=== PATIENT | female | born 1940 | race Caucasian/White ===

== ENCOUNTER 2021-07-25 07:09 | Inpatient (IN) ==
--- NOTE | 2021-06-26 14:34 | PAT Medication Instructions ---
Medication Instructions Date of Service June 26, 2021 Home Medications amiodarone 200 mg tablet 200 mg PO QAM aspirin 81 mg tablet,delayed release 81 mg PO DAILY atorvastatin 40 mg tablet 40 mg PO QPM cyanocobalamin (vitamin B-12) 1,000 mcg tablet (Vitamin B-12) 1,000 mcg PO DAILY dicyclomine 10 mg capsule 10 mg PO QID PRN donepezil 10 mg tablet 10 mg PO DAILY dulaglutide 1.5 mg/0.5 mL subcutaneous pen injector (Trulicity) 1.5 mg SUBCUT WK lisinopril 10 mg tablet 10 mg PO QAM melatonin 10 mg capsule 10 mg PO HS metoprolol succinate 25 mg tablet,extended release 24 hr 25 mg PO QAM multivitamin 1 cap PO DAILY sertraline 25 mg tablet 25 mg PO QPM Continue as directed donepezil 10 mg tablet 10 mg PO DAILY dulaglutide 1.5 mg/0.5 mL subcutaneous pen injector (Trulicity) 1.5 mg SUBCUT WK (not day of surgery) ASK your prescriber and surgeon aspirin 81 mg tablet,delayed release 81 mg PO DAILY DO NOT take the morning of surgery cyanocobalamin (vitamin B-12) 1,000 mcg tablet (Vitamin B-12) 1,000 mcg PO DAILY dicyclomine 10 mg capsule 10 mg PO QID PRN lisinopril 10 mg tablet 10 mg PO QAM multivitamin 1 cap PO DAILY Take morning of surgery With a small sip of water, OTHERWISE NOTHING TO EAT OR DRINK AFTER MIDNIGHT: amiodarone 200 mg tablet 200 mg PO QAM metoprolol succinate 25 mg tablet,extended release 24 hr 25 mg PO QAM Take evening before surgery atorvastatin 40 mg tablet 40 mg PO QPM dicyclomine 10 mg capsule 10 mg PO QID PRN(if needed) melatonin 10 mg capsule 10 mg PO HS sertraline 25 mg tablet 25 mg PO QPM Other Notes If you have any questions please call us at [phone] or [phone] or [phone] or [phone]
--- NOTE | 2021-07-03 09:21 | Anesthesiology Consultation ---
Date of Service July 03, 2021 Assessment & Plan (1) Encounter for pre-operative examination: - check BSG am DOS. - awaiting cardiology clearance notation and booking sheet changed to overnight. - cardiac history: Case discussed with Dr. Billy Marin including pre-op EKG and he advised that cardiology clearance notation is needed and patient is NOT acceptable for same day surgery. Alivia at surgeon's office made aware. - MCI: to accompany patient am DOS. - PCP 05/14/21 [facility]: "...Right rotator cuff repair scheduled for June - no pre op needed per ...Decrease dose of Trulicity due to weight loss...With Nephrology and Cardiology. Blood pressure is at goal. Genetic testing for HOCM was negative...Hallucinations could be related to zoloft - discontinue this. Insomnia could be related to aricept; start trazodone and f/u with neuro in 2 weeks and then PCP office will call in 4 weeks..." - cardio 04/08/21 [facility]: "...AF newly found 11/22/2020 ended up getting DCCV in the ED; upon hospital discharged started on amiodarone and toprol; no AC was started [id number] (age, HTN, DM, Female)...Asymmetric left ventricular hypertrophy..maximal LV thickness at end diastole is 1.6 cm...inducible dynamic left ventricular outflow tract obstruction...inducible peak instantaneous left ventricular outflow tract gradient is 74 mm Hg.however the LV cavity is underfilled leading to high gradients...No new major cardiac issues in interval since last seen...NSTEMI s/p 11/22/2020 Cath revealed no disease...HCM genetic testing is still pending...did not want to have cMRI because of claustrophobia...no recurrent paroxysmal atrial fibrillation noted on December 2020 Zio monitor...continue on the remainder of her cardiac medications we will see her back in 6 months..." - COVID screening: Per assessment on 07/03/2021: Travel screen negative, no known COVID-19 positive contacts or current COVID-19 related symptoms in past 2 weeks. Pt vaccinated. Surgeon arranging preop COVID testing, scheduled 07/23/2021. Awaiting results. Chart Review Chart Review: Pending: Refer to Additional Notes / Consult section and Patient seen in Pre Admission Testing Teaching & Discussion Pre-Anesthesia Teaching/Discussion Notes: Instructed NPO after midnight before surgery, except medications with 15 cc of water. Medication instructions provided according to the PAT guidelines. History Surgery Operation Date: 07/25/21 09:10 Proposed Procedures p Right Shoulder Arthroscopic Rotator Cuff Repair, Subacromial Decopression, Debridement, Possible Bicep Tenodesis - Luis Daniel Porter M.D. Height/Weight Height: 5 ft 1 in Weight: 56 kg Allergies Allergy/AdvReac Type Severity Reaction Status Date / Time PAIN MEDICATION Allergy Unknown "STRONG Uncoded 06/25/21 13:14 PAIN MEDICATION" - HALLUCINATIONS Medications Home Medications Medication Instructions Recorded Confirmed Last Taken amiodarone 200 mg tablet 200 mg PO QAM 03/01/21 06/25/21 03/13/21 aspirin 81 mg tablet,delayed 81 mg PO DAILY 03/01/21 06/25/21 03/12/21 release atorvastatin 40 mg tablet 40 mg PO QPM 03/01/21 06/25/21 03/12/21 cyanocobalamin (vitamin B-12) 1,000 mcg PO DAILY 03/01/21 06/25/21 03/12/21 1,000 mcg tablet (Vitamin B-12) dicyclomine 10 mg capsule 10 mg PO QID PRN 03/01/21 06/25/21 Unknown donepezil 10 mg tablet 10 mg PO DAILY 03/01/21 06/25/21 03/12/21 dulaglutide 1.5 mg/0.5 mL 1.5 mg SUBCUT WK 03/01/21 06/25/21 03/11/21 subcutaneous pen injector (Trulicity) lisinopril 10 mg tablet 10 mg PO QAM 03/01/21 06/25/21 03/13/21 melatonin 10 mg capsule 10 mg PO HS 03/01/21 06/25/21 Unknown metoprolol succinate 25 mg 25 mg PO QAM 03/01/21 06/25/21 03/12/21 tablet,extended release 24 hr multivitamin 1 cap PO DAILY 03/01/21 06/25/21 03/13/21 Past Medical History Medical History (Updated 07/03/21 @ 16:00 by Bella Jeffers PA-C) Anxiety and depression Atrial fibrillation with RVR 11/2020 s/p cardioversion, no anticoagulation, no paroxysmal afib on 12/2020 Zio monitor per cardio-follows with [facility] cardio Carotid artery stenosis less than 50% stenosis ICAs bilat on 2015 duplex CKD (chronic kidney disease) stage 3, GFR 30-59 ml/min Diabetes NIDDM, type 2, A1c 6.0% 04/2021 Diverticulitis Hepatic steatosis History of colon polyps BENIGN History of CA (myocardial infarction) 11/2020 per records; cath negative; 2020 echo-moderate sized apical wall motion abnormality with akinesis of segments, EF 55-59% HTN (hypertension) controlled, stable per pt Hyperlipidemia LVH (left ventricular hypertrophy) negative HCOM genetic testing per [facility] cardio records MCI (mild cognitive impairment) follows with [facility] neuro, aware of upcoming surgery Renal cyst follows with [facility] nephrology Visual hallucinations sertraline being d/c per PCP and neuro Patient denies h/o stroke, seizures, heart failure, blood clots or blood transfusions. Exercise / Class Metabolic Activity III < 4 Walking/Shop/Light housework (denies CP or SOB) Past Family History Family History Mother Family history of diabetes mellitus Past Surgical History Surgical History History of cardiac cath DEC 2020 - afib with RVR, CA-angiographically normal coronary arteries-no stents History of cataract surgery LEFT History of colonoscopy History of hysterectomy History of knee surgery Past Anesthesia History No Hx of Anesthesia Complications and No Family Hx of Anesthesia Complications History of PONV No Hx of PONV and No Hx of Motion Sickness Social History Smoking Status: Former smoker tobacco type: cigarettes and e-cigarettes Do You Dip or Chew Tobacco: No Smoking End Date: quit cigs 6 yrs ago- quit e cigs 2 yrs go Hx Alcohol Use: Yes alcohol intake frequency: holidays/special occasions only Hx Substance Use: No substance use type: does not use Review of Systems Infrequent snoring, denies witnessed apneas or sleep studies. Occasional cough, chronic, denies change or worsening. Patient denies chest pain, shortness of breath, dyspnea on exertion, reflux, fever, chills, wheezing, or palpitations. Physical Exam Vital Signs Vitals BP 153/77 (Pt states did medication today, is often anxious in hospitals) P 62 TEMP 98.5 SP02 98% on RA RESP 17 Physical Full cervical extension range of motion without pain TMD 3.5 finger breaths Mallampati Score 3 Dentition: edentulous, full upper and lower dentures Lungs: normal respiratory effort. Clear throughout to auscultation, no adventitious breath sounds Cardiac: regular rate and rhythm, no murmurs noted Carotid arteries: negative bruit bilat Lab Results Anesthesia Preop Results Results Anesthesia Widget: WBC 4.53 K/uL (4.8-10.8) L 07/03/21 Hgb 12.8 g/dL (12.0-16.0) 07/03/21 Hct 37.9 % (37-47) 07/03/21 Plt 244 K/uL (130-400) 07/03/21 Na 140 mmol/L (136-145) 07/03/21 K 4.0 mmol/L (3.5-5.1) 07/03/21 Cl 104 mmol/L (98-107) 07/03/21 CO2 29 mmol/L (21-32) 07/03/21 BUN 12 mg/dl (6-23) 07/03/21 Creat 1.08 mg/dl (0.6-1.2) 07/03/21 Glucose Level 78 mg/dl (70-99(Fasting)) 07/03/21 PT 10.9 Seconds (9.0-12.0) 07/03/21 PTT 29.5 Seconds (21.0-31.0) 07/03/21 INR 1.0 (0.9-1.1) 07/03/21 Urine Color Yellow 07/03/21 Urine Appearance Clear (Clear) 07/03/21 Urine pH 7.0 (4.5-7.5) 07/03/21 Urine Specific [place] 1.011 (1.000-1.030) 07/03/21 Urine Protein Negative (Negative) 07/03/21 Urine Glucose (UA) Negative (Negative) 07/03/21 Urine Ketones Negative (Negative) 07/03/21 Urine Blood Negative (Negative) 07/03/21 Urine Nitrite Negative (Negative) 07/03/21 Urine Bilirubin Negative (Negative) 07/03/21 Urine Urobilinogen Negative (Negative) 07/03/21 Urine Leukocyte Esterase Trace (Negative) H 07/03/21 Urine WBC (Auto) 1-5 /hpf (0-5) 07/03/21 Urine RBC (Auto) 0-4 /hpf (0-4) 07/03/21 Urine Hyaline Casts (Auto) 0 /lpf (0-5) 07/03/21 Urine Epithelial Cells (Auto) 10-20 /lpf (0-5) H 07/03/21 Urine Bacteria (Auto) Negative (Negative) 07/03/21 Testing Electrocardiogram Date: 07/03/21 Sinus bradycardia, rate 59 bpm Right atrial enlargement ST elevation, consider early repolarization, pericarditis or injury Chest X-Ray Date: 07/03/21 Lung volumes are normal. Lungs are clear. There is no pneumothorax or pleural effusion. Borderline cardiomegaly. There is mitral annular calcification. Mediastinal contours are normal. There is no evidence for pulmonary edema. Left abdominal calcifications are incidentally noted. Opacity along left heart border likely reflects epicardial fat pad. IMPRESSION: No acute cardiopulmonary findings. Echocardiogram Date: 11/23/20 EF 55-59% Moderate sized apical wall motion abnormality with akinesis of the segments Asymmetric LVH maximal at end diastole 1.6 cm Inducible dynamic left ventricular outflow tract obstruction, gradient 74 mmHg [place] is akinetic, left atrium moderately enlarged Grade I diastolic dysfunction Mild tricuspid regurgitation Cardiac Catheterization Date: 11/26/20 Indications: NSTEMI Coronary arteries are angiographically normal Different ostium for Cx and LAD Other Testing Event monitor 01/31/21 Predominant rhythm sinus with average HR 66 bpm; slowest 43 bpm, fastest 164 bpm Rare APC, no SVT, PAT or AF Rare VPC, one 10 beat run of NSVT Carotid doppler 12/13/15 Less than 50% stenosis ICAs bilat
--- NOTE | 2021-07-24 16:40 | History & Physical Report ---
Date of Service July 24, 2021 Assessment & Plan (1) Complete rotator cuff tear or rupture of right shoulder, not specified as traumatic: Plan: She has chronic right shoulder pain and weakness, with exacerbation of her symptoms after a fall in April. MRI shows a full-thickness rotator cuff tear. She also has subacromial impingement and likely superior labral tear contributing to her symptoms. She has failed a course of conservative treatment including injections. I would recommend a right shoulder arthroscopy with rotator cuff repair. We will plan for subacromial decompression and likely biceps tenodesis at the same setting. She is in agreement this plan. Risks, benefits, and alternatives of surgery were explained in detail. The surgical procedure, as well as postoperative recovery and rehabilitation, was also explained in detail. Risks include bleeding; infection; damage to surrounding structures such as nerves, blood vessels, and tendons that run in the area; persistent pain, numbness, weakness, or stiffness; hardware failure or failure of the repair; or need for further surgery. The patient understands all of this and wishes to proceed with surgery. Informed consent was obtained. History of Present Illness Chief Complaint: Right shoulder pain and weakness Primary Care Provider: Lisbet Lee Ms. Quinonez is a 81-year-old female who has had chronic right shoulder pain since around December 2020 without any obvious injury. She initially presented in January 2021 and received a subacromial steroid injection at that time. She noted significant improvement in her shoulder pain after that injection. She then had a fall in April 2021 with significant worsening of her symptoms. She was then sent for an MRI. Allergies Allergy/AdvReac Type Severity Reaction Status Date / Time PAIN MEDICATION Allergy Unknown "STRONG Uncoded 06/25/21 13:14 PAIN MEDICATION" - HALLUCINATIONS Home Medications Medication Instructions Recorded Confirmed Type amiodarone 200 mg tablet 200 mg PO QAM 03/01/21 06/25/21 History aspirin 81 mg tablet,delayed 81 mg PO DAILY 03/01/21 06/25/21 History release atorvastatin 40 mg tablet 40 mg PO QPM 03/01/21 06/25/21 History cyanocobalamin (vitamin B-12) 1,000 mcg PO DAILY 03/01/21 06/25/21 History 1,000 mcg tablet (Vitamin B-12) dicyclomine 10 mg capsule 10 mg PO QID PRN 03/01/21 06/25/21 History donepezil 10 mg tablet 10 mg PO DAILY 03/01/21 06/25/21 History dulaglutide 1.5 mg/0.5 mL 1.5 mg SUBCUT WK 03/01/21 06/25/21 History subcutaneous pen injector (Trulicity) lisinopril 10 mg tablet 10 mg PO QAM 03/01/21 06/25/21 History melatonin 10 mg capsule 10 mg PO HS 03/01/21 06/25/21 History metoprolol succinate 25 mg 25 mg PO QAM 03/01/21 06/25/21 History tablet,extended release 24 hr multivitamin 1 cap PO DAILY 03/01/21 06/25/21 History Past Med/Surg History Medical History (Updated 07/24/21 @ 16:40 by Luis Daniel Porter M.D.) Aneurysm apical, 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 Anxiety and depression Atrial fibrillation with RVR on Eliquis, 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 Carotid artery stenosis less than 50% stenosis ICAs bilat on 2015 duplex CKD (chronic kidney disease) stage 3, GFR 30-59 ml/min Diabetes NIDDM, type 2, A1c 6.0% 04/2021 Diverticulitis Hepatic steatosis History of colon polyps BENIGN History of [place] (myocardial infarction) 11/2020 per records; cath negative; 2020 echo-moderate sized apical wall motion abnormality with akinesis of segments, EF 55-59% HTN (hypertension) controlled, stable per pt Hyperlipidemia Hypertrophic cardiomyopathy with obstruction, 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 MCI (mild cognitive impairment) follows with [facility] neuro, aware of upcoming surgery Renal cyst follows with [facility] nephrology Visual hallucinations sertraline being d/c per PCP and neuro Surgical History History of cardiac cath NOV/DEC 2020 - afib with RVR, [place]-angiographically normal coronary arteries-no stents History of cataract surgery LEFT History of colonoscopy History of hysterectomy History of knee surgery Family History Mother Family history of diabetes mellitus Social History Smoking Status: Former smoker Second Hand Exposure: No; Hx Alcohol Use: Yes Hx Substance Use: No Preferred Language: Vincentian Communication Ability: Effective Police Officer Required: No Beliefs That Will Affect Care: None Current Living Situation: Spouse Feels Safe at Home: Yes Assistive Devices: Denture - Upper, Denture - Lower and Glasses Physical Exam Physical Exam: Examination of the right shoulder reveals limitation and weakness of the supraspinatus and infraspinatus. Subscapularis strength is well maintained. Positive Truxton's test. Positive impingement testing. Results & Data ([facility]) Diagnostic Findings Previous x-rays of the right shoulder from January 2021 were reviewed. They are largely unremarkable. No glenohumeral or acromioclavicular joint arthritis. No obvious proximal migration of the humeral head. MRI of the right shoulder from April 2021 was reviewed. It is a very poor quality MRI with poor resolution of the images. However, does appear to show a full-thickness rotator cuff tear involving the anterior aspect of the supraspinatus. It does not appear that there is significant fatty atrophy of the rotator cuff muscle bellies, but this is difficult to tell due to the quality of the MRI. It does look like there is fairly dramatic lateral downsloping of the acromion. There is signal within the superior labrum consistent with a superior labral tear.
[~2021-07-25 07:09] MED LIST: BUPIVACAINE 0.5 % 5 MG/1 ML MPF 30ML VIAL ONE; LR 15ML/HR IV SCH; ceFAZolin 1000MG 1,000 MG/7.5 ML SYR IV SCH
[2021-07-25] MEDS ORDERED: PROPOFOL IV EMULSION 10 MG/ML 20 ML VIAL IV ONE (07:32)
[2021-07-25] MEDS ORDERED: LIDOCAINE 2% 2 ML VIAL/AMP(20MG/ML) INFIL ONE (07:32)
[2021-07-25] MEDS ORDERED: fentaNYL citrate 100 MCG/2 ML VIAL ONE (07:32)
[2021-07-25] MEDS ORDERED: MIDAZOLAM HCL 1 MG/ML 2ML VIAL ONE (07:32)
[2021-07-25] MEDS ORDERED: NEOSTIGMINE METHYLSULFATE 1 MG/ML 10ML VIAL ONE (07:32)
[2021-07-25] MEDS ORDERED: DEXAMETHASONE SOD INJ 4 MG/ML VIAL ONE (07:32)
[2021-07-25] MEDS ORDERED: ONDANSETRON INJ 2 MG/ML 2 ML VIAL ONE (07:32)
[2021-07-25] MEDS ORDERED: GLYCOPYRROLATE 0.2 MG/ML VIAL ONE (07:32)
--- NOTE | 2021-07-25 09:10 | History & Physical Bridge Note ---
Date of Service July 25, 2021 History & Physical Bridge Note I have examined the patient, reviewed the History & Physical and in the interval since the performance of the History & Physical I have noted the following changes of clinical significance: no changes noted
[2021-07-25] MEDS ORDERED: ATROPINE SULFATE 0.1 MG/ML 10ML SYR IV PRN (10:10)
[2021-07-25] MEDS ORDERED: ONDANSETRON INJ 2 MG/ML 2 ML VIAL IV PRN ×2 (10:10→14:44)
[2021-07-25] MEDS ORDERED: ePHEDrine sulfate 50 MG/ML AMP IV PRN (10:10)
[2021-07-25] MEDS ORDERED: fentaNYL citrate 100 MCG/2 ML VIAL IV PRN (10:10)
[2021-07-25] MEDS ORDERED: PHENYLEPHRINE HCL 10 MG/ML VIAL ONE (10:37)
--- NOTE | 2021-07-25 12:27 | Post Operative Brief Note ---
Immediate Post Op Note v1 Date of Surgery July 25, 2021 Pre & Post Diagnosis Operation Date: 07/25/21 09:30 Pre-Op Diagnosis: Right Shoulder: Rotator Cuff Tear, Impingement Syndrome Post-Op Diagnosis: Right Shoulder: Rotator Cuff Tear, Impingement Syndrome, Acromioclavicular Joint Arthritis I identified the patient and participated in the time-out.: Yes Procedure Operation Date: 07/25/21 09:30 Actual Procedures p Right Shoulder: Arthroscopic Rotator Cuff Repair, Subacromial Decompression, Debridement, Bicep Tenodesis, Distal Clavicle Excision(Right) - Luis Daniel Porter M.D. Surgeon Luis Daniel Porter Insurance Healthcare Consultant Lucio Brand PA-C Estimated Blood Loss 15 Findings Consistent with Post-Op Diagnosis
--- NOTE | 2021-07-25 12:41 | Operative Report ---
Post Operative Report Pre & Post Diagnosis Operation Date: 07/25/21 09:30 Pre-Op Diagnosis: 1. Right shoulder rotator cuff tear 2. Subacromial impingement 3. Possible superior labral tear Post-Op Diagnosis: 1. Right shoulder partial thickness (~90%) rotator cuff tear 2. Subacromial impingement 3. Superior labral tear 4. Acromioclavicular joint arthritis 5. Osteoporosis I identified the patient and participated in the time-out.: Yes Procedure Operation Date: 07/25/21 09:30 Actual Procedures Right shoulder arthroscopy with double-row rotator cuff repair (02409) Arthroscopic subacromial decompression (79692) Arthroscopic distal clavicle excision (73060) Arthroscopic extensive debridement (77278) Arthroscopic biceps tenodesis (88202) - Luis Daniel Porter M.D. Surgeon Luis Daniel Porter Parachute Mender Lucio Brand PA-C Estimated Blood Loss 15 Findings Consistent with Post-Op Diagnosis Specimens None Anesthesia Type General Regional Complications none Disposition Disposition: Recovery Room Indications Ms. Quinonez is a 81-year-old female with chronic right shoulder pain and weakness without known injury, but with recent worsening of her symptoms after a fall in April 2021. History, clinical exam, and imaging were consistent with the above diagnosis. Risks, benefits, and alternatives of surgery were explained in detail. The patient understood all this and wished to proceed. Description of Procedure Patient was identified in the preoperative holding area. Operative extremity was marked. Regional blockade was given by the Anesthesia Staff. Patient was then brought back to the operating room, and general anesthesia was induced without complication. Appropriate weight-based dose of Ancef was infused intravenously for antibiotic prophylaxis. Patient was then placed up in the beach chair position. Right arm was then prepped and draped in a standard sterile fashion using Chlorhexidine prep. Posterior viewing portal was created with a #11 blade. Arthroscopic camera was introduced into the shoulder joint. Anterior working portal was then created with a #11 blade after localizing with a spinal needle. Diagnostic arthroscopy was then performed. Anterior-inferior labrum and inferior labrum were intact. [Articular cartilage in the glenoid and humeral head was largely intact without significant chondromalacia; there was 1 small area of focal grade III chondromalacia in the humeral head, measuring approximately 5 mm in diameter. There were no loose bodies in the axillary pouch. Superior labrum showed fraying along the free edge. When probed, the superior labrum from the superior glenoid, consistent with a type II SLAP tear. I then inspected the biceps tendon as it exited out of the shoulder. There was significant synovi tis and tendonitis of the biceps tendon in this area. I therefore decided to proceed with a biceps tenotomy and tenodesis. I tagged the biceps tendon with a 0 PDS suture. I then amputated the biceps tendon off of the superior labrum, and debrided the biceps tendon stump at the biceps labral anchor back to a smooth and stable rim. The fraying and tearing along the free edge of the labrum was also debrided with an arthroscopic shaver. I then inspected the rotator cuff tendon. Rotator cuff showed fraying and partial-thickness tearing of its inferior articular surface, but not an obvious near full-thickness tear. I debrided the frayed and partially torn tendon fibers of the inferior articular surface of the rotator cuff with an arthroscopic shaver back to intact tendon fibers. I then estimated the inferior articular surface tear to involve only approximately 10% of the tendon thickness. I did not complete the tear at this point, but planned to inspect this area of the rotator cuff from its superior bursal surface later in the procedure. I then removed the camera from the intraarticular space and placed it in the subacromial space. Subacromial bursectomy was then performed with shaver and radiofrequency probe the subacromial bursa was extremely thick, inflamed, and hypertrophic. I defined the anterior and lateral borders of the acromion as well as the acromioclavicular joint. Severe lateral downsloping to the acromion was noted; I first used the bur through the lateral portal to debride the lateral edge of the acromion. I then used the arthroscopic bur through the posterior portal to excise the anterolateral undersurface of the acromion and complete the subacromial decompression in a cutting block technique. I then turned my attention to the distal clavicle. There was significant hypertrophy and osteophyte formation of the distal clavicle and medial border of the acromion that appeared to be impinging on the underlying rotator cuff, and I therefore decided to proceed with an arthroscopic distal clavicle excision. I placed the arthroscopic bola through the anterior portal and removed the distal 8 mm of the clavicle from anterior-inferior to superior-posterior. I ensured that the superior portion of the distal clavicle was completely excised while leaving the superior acromioclavicular joint capsule intact. At this point I proceeded with the biceps tenodesis. I continued with the bursectomy anteriorly to the area overlying the bicipital groove. Bicipital groove was palpated, and the biceps tendon was unroofed with the radiofrequency probe. There was significant synovitis and tendonitis of the biceps tendon in this area. I then subluxated the biceps tendon out of the bicipital groove and placed a guide wire in the center of the bicipital groove. I then used an 8 mm reamer over the guidewire to create the biceps tenodesis hole. I then tensioned the biceps tendon appropriately, placed the tendon down into the depth of the tenodesis hole, and held it there with a guidewire. I then secured the tendon with a 7 x 25 mm Biosure tenodesis screw over the guidewire to complete the biceps tenodesis. I then amputated the proximal portion of the tendon proximal to the tenodesis screw. I then turned my attention to the rotator cuff. I inspected the rotator cuff tendon from its superior bursal surface in the area of inferior articular surface partial-thickness tendon tearing seen earlier in the procedure, and noted high-grade partial thickness tendon tearing in the same area. I estimated the tear thickness at the superior bursal surface to be approximately 80% of the tendon thickness, and therefore estimated the total partial-thickness tendon tearing to be approximately 90%. I therefore determined that completion of the tear and rotator cuff repair would provide the best long-term outcome. I therefore completed the tear by dividing the few remaining intact tendon fibers with a knife. I debrided the anterior and posterior aspects of the tendon tear to get back to good, healthy, intact tendon tissue. I also debrided the supraspinatus footprint on the greater tuberosity to incite a healing response. I then visualized the articular margin. As I inserted the tap for a medial row anchor, I noted that the bone was very soft, and therefore decided to use 5.5 mm anchors. I placed two 5.5 mm Healicoil PK anchors as medial row anchors just off of the articular margin. I then passed sutures from each anchor up through the rotator cuff tendon. After all the sutures were passed, I then abducted the shoulder to allow the rotator cuff tendon to reduce back to its anatomic footprint, then tensioned and tied down each pair of sutures. As I inserted the awl for the lateral row anchor, I again noted that the bone was very soft, and therefore decided to use 5.5 mm anchors. I then took one limb of suture from each suture knot and loaded them through a 5.5 mm Footprint PK anchor as the lateral row anchor. This was placed over the lateral edge of the greater tuberosity distal to the rotator cuff tear. The anchor was impacted into place and then each limb of the suture was individually tensioned with the shoulder abducted to allow the rotator cuff tendon to come back to its insertion point. Unfortunately during suture tensioning, the anchor was noted to back out of its hole, consistent with severe osteoporosis that with minimal craft artist of the anchor on the surrounding soft bone. This anchor was temporarily removed, and the sutures loaded into another anchor. Both anchors were then impacted into the same hole to give a larger mass-effect and therefore better fixation in that hole. A second lateral row anchor was then placed with the other limb of the suture from each anchor. Fortunately this second anchor held more firmly in the bone, and did not require additional fixation. This gave an excellent double- row repair with good compression of the distal end of the rotator cuff tendon back down to its anatomic footprint. The rotator cuff tendon then moved as a unit with the humeral head. The extensive arthroscopic debridement involved 3 or more structures, including: biceps labral anchor, labrum, humeral bone at the greater tuberosity footprint, subacromial bursa, inferior articular surface of the rotator cuff, superior bursal surface of the rotator cuff. All arthroscopic equipment was removed and excess fluid was drained. Arthroscopic portals were then closed with 4-0 Prolene. Sterile dressings were then applied with Xeroform, sterile gauze, and sterile ABD pads, and foam tape. The arm was placed in a sling with abduction pillow. Drapes were removed, the patient was awakened from general anesthesia, transferred over to the stretcher, and taken to the Post Anesthesia Care Unit in stable condition. There were no immediate complications from the procedure. I was present and scrubbed for the entire procedure. Due to the complex nature of the procedure, the entire surgery was performed with the operational assistance of Lucio Brand PA-C. The assistant technician, under direct supervision, was involved in the performance of all aspects of the surgical procedure including hemostasis, tissue incision and retraction, instrument management, patient positioning, and wound closure. I attest to the content of the Intraoperative Record and any orders documented therein. Any exceptions are noted below.
--- NOTE | 2021-07-25 14:39 | Anesthesiology Progress Note ---
Date of Service July 25, 2021 Anesthesia Post Procedure Vital Signs Vital Signs: Temp Pulse Pulse Resp BP Pulse Ox 07/25/21 14:15 36.2 C L 59 L 13 111/95 100 07/25/21 14:00 63 17 145/62 H 98 07/25/21 13:45 55 L 15 170/74 H 97 07/25/21 13:30 54 L 14 158/68 H 96 07/25/21 13:20 60 20 169/69 H 95 07/25/21 13:10 35.9 C L 53 L 12 154/64 H 96 07/25/21 13:00 53 L 16 163/66 H 97 07/25/21 12:50 59 L 14 169/72 H 96 07/25/21 12:40 60 18 161/63 H 96 07/25/21 12:33 36.0 C L 72 16 155/66 H 99 07/25/21 08:21 36.7 C 65 20 144/75 H 99 Pain Intensity Right Shoulder: Pain Intensity: 2 Transfer of Care Handoff Completed per policy Notes Mental Status: alert / awake / arousable Patient Amnestic to Procedure: Yes Nausea / Vomiting: adequately controlled Pain: adequately controlled Airway Patency, RR, SpO2: stable & adequate BP & HR: stable & adequate Hydration State: stable & adequate Anesthetic Complications: no major complications apparent
[2021-07-25] MEDS ORDERED: DICYCLOMINE HCL 10 MG CAP PO PRN (14:44)
[2021-07-25] MEDS ORDERED: NALOXONE HCL 0.4 MG/1 ML VIAL/CARP IV PRN (14:44)
[2021-07-25] MEDS ORDERED: MAGNESIUM HYDROXIDE SUSP 30 ML UDC PO PRN (14:44)
[2021-07-25] MEDS ORDERED: bisacodyL 10 MG SUPP PR PRN (14:44)
[2021-07-25] MEDS ORDERED: METOCLOPRAMIDE HCL INJ 5 MG/ML 2 ML VIAL IV PRN (14:44)
--- NOTE | 2021-07-25 15:22 | Consultation ---
Date of Consultation July 25, 2021 Assessment & Plan (1) Rotator cuff tear: Right shoulder partial thickness Rotator cuff tear, Subacromial impingement, Superior labral tear S/P Right shoulder arthroscopy with double-row rotator cuff repair, arthroscopic subacromial decompression, debridement POD #0 Activity, wound care, DVT prophylaxis as per primary team. Incentive spirometry Bowel regimen to prevent constipation Patient sensitive to narcotics, minimize use as able Reorient frequently to minimize delirium Monitor for postop anemia PT/OT when appropriate DM II Last HbA1C: 6.0 on 05/07/21 Update HbA1C Hold Trulicity Insulin sliding scale while hospitalized Monitor BGs Atrial fibrillation Continue amiodarone, metoprolol Currently not on anticoagulation Continue aspirin Follows with [facility] cardiology Hypertension BP slightly elevated Continue current medication B12 deficiency Continue Supplements Dyslipidemia On Lipitor CKD stage III Monitor renal function Avoid nephrotoxic agents as able Mild cognitive impairment On Aricept Code Status Full Code Disposition As per Primary Team History of Present Illness Requesting Physician: Dr. Luis Daniel Porter Reason for Consultation: Post Op Medical Management Attending Physician: Luis Daniel Porter History of Present Illness Patient is a 81-year-old female with history of diabetes mellitus, atrial fibrillation, former tobacco use, hypertension, B12 deficiency, dyslipidemia, CKD stage III, mild cognitive impairment as per records and other medical problems was consulted for postop medical management. Patient underwent right shoulder surgery for right shoulder partial-thickness rotator cuff tear, subacromial impingement, superior labral tear, acromioclavicular joint arthritis. Patient is doing well postoperatively. She denies any significant pain at surgical site. Also denies any numbness or tingling in fingers. States feeling little shaky with ambulation. Denies any chest pain, shortness breath, dizziness, nausea, abdominal pain. Allergies Allergy/AdvReac Type Severity Reaction Status Date / Time adhesive tape AdvReac Mild red, Verified 07/25/21 11:41 irritated skin PAIN MEDICATION Allergy Unknown "STRONG Uncoded 07/25/21 08:00 PAIN MEDICATION" - HALLUCINATIONS Home Medications Medication Instructions Recorded Confirmed Type amiodarone 200 mg tablet (Pacerone) 200 mg PO QAM 03/01/21 07/25/21 History aspirin 81 mg tablet,delayed 81 mg PO DAILY 03/01/21 07/25/21 History release atorvastatin 40 mg tablet (Lipitor) 40 mg PO QPM 03/01/21 07/25/21 History cyanocobalamin (vitamin B-12) 1,000 mcg PO DAILY 03/01/21 07/25/21 History 1,000 mcg tablet (Vitamin B-12) dicyclomine 10 mg capsule 10 mg PO QID PRN 03/01/21 07/25/21 History donepezil 10 mg tablet (Aricept) 10 mg PO DAILY 03/01/21 07/25/21 History dulaglutide 1.5 mg/0.5 mL 1.5 mg SUBCUT WK 03/01/21 07/25/21 History subcutaneous pen injector (Trulicity) lisinopril 10 mg tablet (Zestril) 10 mg PO QAM 03/01/21 07/25/21 History metoprolol succinate 25 mg 25 mg PO QAM 03/01/21 07/25/21 History tablet,extended release 24 hr (Toprol XL) multivitamin 1 cap PO DAILY 03/01/21 07/25/21 History Patient History Medical History (Updated 07/25/21 @ 16:39 by Santos Biswas MD) Aneurysm apical, 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 Anxiety and depression Atrial fibrillation with RVR on Eliquis, 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 Carotid artery stenosis less than 50% stenosis ICAs bilat on 2015 duplex CKD (chronic kidney disease) stage 3, GFR 30-59 ml/min Diabetes NIDDM, type 2, A1c 6.0% 04/2021 Diverticulitis Hepatic steatosis History of colon polyps BENIGN History of [place] (myocardial infarction) 11/2020 per records; cath negative; 2020 echo-moderate sized apical wall motion abnormality with akinesis of segments, EF 55-59% HTN (hypertension) controlled, stable per pt Hyperlipidemia Hypertrophic cardiomyopathy with obstruction, 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 MCI (mild cognitive impairment) follows with [facility] neuro, aware of upcoming surgery Renal cyst follows with [facility] nephrology Rotator cuff tear Visual hallucinations sertraline being d/c per PCP and neuro Surgical History History of cardiac cath NOV/DEC 2020 - afib with RVR, [place]-angiographically normal coronary arteries-no stents History of cataract surgery LEFT History of colonoscopy History of hysterectomy History of knee surgery Family History Mother Family history of diabetes mellitus Social History Smoking Status: Former smoker Smoking End Date: quit cigs 6 yrs ago- quit e cigs 2 yrs go; Second Hand Exposure: No; Do You Dip or Chew Tobacco: No; Tobacco Cessation Education Requested by Patient: No Hx Alcohol Use: Yes Hx Substance Use: No Preferred Language: Armenian Communication Ability: Effective Game Show Host Required: No Beliefs That Will Affect Care: None Current Living Situation: Spouse Other Information That Helps Us Care for You: No Feels Safe at Home: Yes Safety Concerns: Feels Safe At This Time Assistive Devices: Denture - Upper, Denture - Lower and Glasses Review of Systems Review of Systems: All systems reviewed & are unremarkable except as noted in Subjective Physical Exam Physical Exam: Physical Exam: Vitals signs as noted above General Appearance:Thin, no apparent distress Head: normocephalic, Atraumatic Eyes: normal inspection, EOMI Neck: supple, Trachea midline Respiratory/Chest: Normal breath sounds, CTA, No accessory muscle use Cardiovascular: S1, S2, No murmur Abdomen/GI:Soft, Non tender, Bowel sounds present Extremities/Musculoskeletal:normal inspection, no edema, R shoulder in Sling Neurologic/Psych:AAOX3, grossly no focal neurological deficits Skin: normal color, warm Results & Data ([facility]) Vital Signs (Past 12 Hours) Vital Signs Temp Pulse Pulse Resp BP Pulse Ox 07/25/21 14:35 36.1 C L 60 16 162/53 H 95 07/25/21 14:15 36.2 C L 59 L 13 111/95 100 07/25/21 14:00 63 17 145/62 H 98 07/25/21 13:45 55 L 15 170/74 H 97 07/25/21 13:30 54 L 14 158/68 H 96 07/25/21 13:20 60 20 169/69 H 95 07/25/21 13:10 35.9 C L 53 L 12 154/64 H 96 07/25/21 13:00 53 L 16 163/66 H 97 07/25/21 12:50 59 L 14 169/72 H 96 07/25/21 12:40 60 18 161/63 H 96 07/25/21 12:33 36.0 C L 72 16 155/66 H 99 07/25/21 08:21 36.7 C 65 20 144/75 H 99 Laboratory Results Laboratory Results - last 24 hr 07/25/21 07/25/21 07/25/21 07:44 08:06 12:38 POC Glucose 91 78 SARS-CoV-2, RNA, NAAT NEGATIVE Diagnostic Findings CXR 07/03/21:No acute cardiopulmonary findings.
[2021-07-25] MEDS ORDERED: POLYETHYLENE (MIRALAX) 17 GM PACK PO PRN (15:33)
[2021-07-25] MEDS: SODIUM CHLORIDE 0.9% 1000ML 1,000 ML IV SCH (15:35)
[2021-07-25] MEDS ORDERED: GLUCAGON FOR INJ 1 MG VIAL SQ PRN (15:37)
[2021-07-25] MEDS ORDERED: GLUCOSE 10 TABS/TUBE PO PRN (15:37)
[2021-07-25] MEDS ORDERED: CARBOHYDRATES FOR HYPOGLYCEMIA PO PRN (15:37)
[2021-07-25] MEDS ORDERED: DEXTROSE 50% 50 ML SYRINGE IV PRN (15:37)
[2021-07-25] MEDS ORDERED: GLUCOSE 40% GEL 15 GM TUBE PO PRN (15:37)
[2021-07-25] MEDS: ACETAMINOPHEN 500 MG TAB PO SCH ×2 (16:25→21:31)
[2021-07-25] MEDS: ceFAZolin 1000MG 1,000 MG/7.5 ML SYR IV SCH (17:39)
[2021-07-25] MEDS: INSULIN ASPART PER UNIT SC SCH ×2 (17:39→21:26)
[2021-07-25] MEDS: IBUPROFEN 600 MG TAB PO SCH ×2 (18:25→23:25)
[2021-07-25] MEDS: DOCUSATE SODIUM 100 MG CAP PO SCH (20:41)
[2021-07-25] MEDS ORDERED: ATORVASTATIN 40 MG TAB PO SCH (21:00)
[2021-07-25] MEDS ORDERED: SENNA 8.6 MG TAB PO SCH (21:00)
[2021-07-26] MEDS: SODIUM CHLORIDE 0.9% 1000ML 1,000 ML IV SCH (01:37)
[2021-07-26] MEDS: ceFAZolin 1000MG 1,000 MG/7.5 ML SYR IV SCH (01:37)
[2021-07-26] MEDS: ACETAMINOPHEN 500 MG TAB PO SCH (05:45)
[2021-07-26] MEDS: IBUPROFEN 600 MG TAB PO SCH (05:45)
[2021-07-26 05:49] LABS: Hematocrit (blood only) 34.1 % (37-47); Hemoglobin 11.6 g/dL (12.0-16.0); Mean Corpuscular Hemoglobin 32.8 pg (25-34); Mean Corpuscular Volume 96.3 fL (80-100); Mean Platelet Volume 9.7 fL (7.4-10.4); Platelet Count 215 K/uL (130-400); RDW Coefficient of Variation 12.9 % (11.5-14.5); RDW Standard Deviation 45.3 fL (36.4-46.3); Red Blood Count 3.54 M/uL (4.2-5.4); White Blood Count 6.95 K/uL (4.8-10.8)
[2021-07-26 06:06] LABS: Basophils # (auto) 0.02 K/uL (0-0.2); Basophils % (auto) 0.3 %; Eosinophils # (auto) 0.02 K/uL (0-0.5); Eosinophils % (auto) 0.3 %; Immature Granulocytes # (auto) 0.03 K/uL (0.00-0.02); Immature Granulocytes % (auto) 0.4 %; Lymphocytes # (auto) 1.26 K/uL (1.2-3.4); Lymphocytes % (auto) 18.1 %; Monocytes # (auto) 0.71 K/uL (0.11-0.59); Monocytes % (auto) 10.2 %; Neutrophils # (auto) 4.91 K/uL (1.4-6.5); Neutrophils % (auto) 70.7 %
[2021-07-26 06:07] LABS: BUN Creatinine Ratio 13.8 (10-20); Calcium 8.3 mg/dl (8.5-10.1); Creatinine Clr Calc Pharmacy 31.6 ml/min; Est GFR (African American) 55.9 ml/min; Est GFR (Non-African American) 48.2 ml/min
[2021-07-26 07:43] LABS: Estimated Average Glucose 123 mg/dl; Hemoglobin A1C 5.9 % (4.5-5.6)
--- NOTE | 2021-07-26 07:49 | Orthopedic Progress Note ---
Date of Service July 26, 2021 Assessment & Plan (1) Rotator cuff tear: Plan: 81 yo female stable POD #1 s/p right shoulder arthro, biceps tenodesis, SAD, DCE, RCR 1. Med management 2. DVT prophylaxis- SCDs 3. PT/OT 4. D/C planning- home w/ OPPT Admission and Anticipated Discharge Date Admission Date: July 25, 2021 Subjective Pt resting in chair, denies complaints overnight, pain controlled Physical Exam Physical Exam: Abduction immobilizer in place right UE, fingers mobile, NVI, dressing in place Results & Data ([facility]) Vital Signs (Past 12 Hours) Vital Signs Temp Pulse Resp BP Pulse Ox 07/26/21 06:20 36.5 C 60 16 124/63 94 07/26/21 01:32 36.3 C L 62 16 152/67 H 94 07/25/21 22:36 36.7 C 63 17 128/71 93 07/25/21 20:24 36.7 C 60 17 130/65 94 Laboratory Results 07/26/21 07/26/21 07/26/21 Range/Units 05:20 05:20 05:20 WBC 6.95 (4.8-10.8) K/uL RBC 3.54 L (4.2-5.4) M/uL Hgb 11.6 L (12.0-16.0) g/dL Hct 34.1 L (37-47) % MCV 96.3 (80-100) fL MCH 32.8 (25-34) pg MCHC 34.0 (32-36) g/dL RDW Std Deviation 45.3 (36.4-46.3) fL RDW Coeff of Hazel 12.9 (11.5-14.5) % Plt Count 215 (130-400) K/uL MPV 9.7 (7.4-10.4) fL Immature Gran % (Auto) 0.4 % Neut % (Auto) 70.7 % Lymph % (Auto) 18.1 % [place] % (Auto) 10.2 % Eos % (Auto) 0.3 % Baso % (Auto) 0.3 % Neut # (Auto) 4.91 (1.4-6.5) K/uL Lymph # (Auto) 1.26 (1.2-3.4) K/uL [place] # (Auto) 0.71 H (0.11-0.59) K/uL Eos # (Auto) 0.02 (0-0.5) K/uL Baso # (Auto) 0.02 (0-0.2) K/uL Immature Gran # (Auto) 0.03 H (0.00-0.02) K/uL Sodium 136 (136-145) mmol/L Potassium 4.0 (3.5-5.1) mmol/L Chloride 106 (98-107) mmol/L Carbon Dioxide 23 (21-32) mmol/L Anion Gap 7 (3-11) BUN 15 (6-23) mg/dl Creatinine 1.09 (0.6-1.2) mg/dl Est Cr Clr Drug Dosing 31.6 ml/min Est GFR ( Amer) 55.9 ml/min Est GFR (Non-Af Amer) 48.2 ml/min BUN/Creatinine Ratio 13.8 (10-20) Glucose 104 H (70-99(Fasting)) mg/dl POC Glucose (70-99) mg/dl Estimat Average Glucose 123 mg/dl Hemoglobin A1c 5.9 H (4.5-5.6) % Calcium 8.3 L (8.5-10.1) mg/dl SARS-CoV-2, RNA, NAAT (NEGATIVE) 07/25/21 07/25/21 07/25/21 Range/Units 20:47 17:23 12:38 WBC (4.8-10.8) K/uL RBC (4.2-5.4) M/uL Hgb (12.0-16.0) g/dL Hct (37-47) % MCV (80-100) fL MCH (25-34) pg MCHC (32-36) g/dL RDW Std Deviation (36.4-46.3) fL RDW Coeff of Hazel (11.5-14.5) % Plt Count (130-400) K/uL MPV (7.4-10.4) fL Immature Gran % (Auto) % Neut % (Auto) % Lymph % (Auto) % [place] % (Auto) % Eos % (Auto) % Baso % (Auto) % Neut # (Auto) (1.4-6.5) K/uL Lymph # (Auto) (1.2-3.4) K/uL [place] # (Auto) (0.11-0.59) K/uL Eos # (Auto) (0-0.5) K/uL Baso # (Auto) (0-0.2) K/uL Immature Gran # (Auto) (0.00-0.02) K/uL Sodium (136-145) mmol/L Potassium (3.5-5.1) mmol/L Chloride (98-107) mmol/L Carbon Dioxide (21-32) mmol/L Anion Gap (3-11) BUN (6-23) mg/dl Creatinine (0.6-1.2) mg/dl Est Cr Clr Drug Dosing ml/min Est GFR ( Amer) ml/min Est GFR (Non-Af Amer) ml/min BUN/Creatinine Ratio (10-20) Glucose (70-99(Fasting)) mg/dl POC Glucose 89 117 H 78 (70-99) mg/dl Estimat Average Glucose mg/dl Hemoglobin A1c (4.5-5.6) % Calcium (8.5-10.1) mg/dl SARS-CoV-2, RNA, NAAT (NEGATIVE) 07/25/21 07/25/21 Range/Units 08:06 07:44 WBC (4.8-10.8) K/uL RBC (4.2-5.4) M/uL Hgb (12.0-16.0) g/dL Hct (37-47) % MCV (80-100) fL MCH (25-34) pg MCHC (32-36) g/dL RDW Std Deviation (36.4-46.3) fL RDW Coeff of Hazel (11.5-14.5) % Plt Count (130-400) K/uL MPV (7.4-10.4) fL Immature Gran % (Auto) % Neut % (Auto) % Lymph % (Auto) % [place] % (Auto) % Eos % (Auto) % Baso % (Auto) % Neut # (Auto) (1.4-6.5) K/uL Lymph # (Auto) (1.2-3.4) K/uL [place] # (Auto) (0.11-0.59) K/uL Eos # (Auto) (0-0.5) K/uL Baso # (Auto) (0-0.2) K/uL Immature Gran # (Auto) (0.00-0.02) K/uL Sodium (136-145) mmol/L Potassium (3.5-5.1) mmol/L Chloride (98-107) mmol/L Carbon Dioxide (21-32) mmol/L Anion Gap (3-11) BUN (6-23) mg/dl Creatinine (0.6-1.2) mg/dl Est Cr Clr Drug Dosing ml/min Est GFR ( Amer) ml/min Est GFR (Non-Af Amer) ml/min BUN/Creatinine Ratio (10-20) Glucose (70-99(Fasting)) mg/dl POC Glucose 91 (70-99) mg/dl Estimat Average Glucose mg/dl Hemoglobin A1c (4.5-5.6) % Calcium (8.5-10.1) mg/dl SARS-CoV-2, RNA, NAAT NEGATIVE (NEGATIVE)
--- NOTE | 2021-07-26 08:07 | Discharge Summary ---
Date of Service July 26, 2021 Admission HPI Per Admitting Provider Ms. Quinonez is a 81-year-old female who has had chronic right shoulder pain since around December 2020 without any obvious injury. She initially presented in January 2021 and received a subacromial steroid injection at that time. She noted significant improvement in her shoulder pain after that injection. She then had a fall in April 2021 with significant worsening of her symptoms. She was then sent for an MRI. Principal Diagnosis Right shoulder rotator cuff tear Discharge Data Allergies Allergy/AdvReac Type Severity Reaction Status Date / Time adhesive tape AdvReac Mild red, Verified 07/25/21 11:41 irritated skin PAIN MEDICATION Allergy Unknown "STRONG Uncoded 07/25/21 08:00 PAIN MEDICATION" - HALLUCINATIONS Consultations 07/25/21 14:44 Consult Hospitalist Routine Procedures Performed Operation Date: 07/25/21 09:30 Actual Procedures p Right Shoulder: Arthroscopic Rotator Cuff Repair, Subacromial Decompression, Debridement, Bicep Tenodesis, Distal Clavicle Excision(Right) - Luis Daniel Porter M.D. Ordered Studies 07/25/21 05:00 US - OR guided needle placemen Routine Hospital Course (1) Complete rotator cuff tear or rupture of right shoulder, not specified as tr aumatic: Patient underwent a right shoulder arthroscopy with rotator cuff repair and biceps tenodesis on the date of admission. Patient tolerated the procedure well and was transferred up to the general orthopedic surgery floor in stable condition. Preadmission testing had recommended overnight observation due to her hypertrophic cardiomyopathy. Postoperatively, internal medicine consultation was requested. She did well overnight, and was stable the morning after surgery. Perioperative pain control regimen was transitioned to strictly oral pain medications by postoperative day 1. On postoperative day 1 the patient was doing very well. Pain was well controlled, and patient was mobilizing well with therapy. Patient was determined be safe and ready for d ischarge to home. Total Time Total Time Spent Total Time Spent (In Minutes): 5 Discharge Plan Discharge Items Patient Disposition: Home - Self-Care Reason For Visit: Rotator Cuff Tear, Impingement Syndrome Discharge Diagnosis: Right shoulder rotator cuff tear, superior labral tear, acromioclavicular joint arthritis, osteoporosis Activity: Per Instructions section Non-emergency contact: Surgeon Call non-emergency contact if: your pain is not controlled, your temperature is above 101.5, your wound has increased redness and your wound has increased drainage Follow-up/Referrals: Luis Daniel Porter M.D. [Physician] - Lisbet Lee PA-C [Primary Care Provider] - Diet: Carb Consistent or DM2 Addtl Attending Provider Instructions: Things to Watch Out For -Nausea and sometimes vomiting is common side effect of anesthesia. Go easy with eating for the first day after your surgery. Drink non-carbonated fluids like Gatorade or water. Eat bland foods such as crackers. If these things go down easily, you may progress to more normal foods. -Go to the Emergency Room if you have sudden onset of chest pain, shortness of breath, or uncontrollable pain. -Call the clinic immediately if you have a sudden increase in the amount of wound drainage or the drainage becomes thick, yellow or green, or foul-smelling. -For routine questions, call the clinic at [phone] during regular business hours (8am-5pm). For urgent issues after regular business hours, you may call the clinic to be connected to the on-call physician. Dressings -Keep your dressings clean, dry, and in place for 4 days. After 4 days, you may remove the dressing and cover the incisions with Band-Aids. Be sure to wash your hands thoroughly before touching your incisions. Apply new Band-Aids daily thereafter. -You may begin showering after your first dressing change (4 days after surgery). You may let the water run BRIEFLY over the incisions, but do not soak the incisions in the bathtub or pool for 2 weeks. You may also gently clean the incisions with mild soap and water; pat the incisions dry after cleaning-do not rub the incisions. -You may use an antibiotic ointment (Bacitracin, Polysporin) if desired, but this is not necessary. Shoulder Exercises -Keep your operative shoulder in the sling/abduction pillow at all times, except as detailed below. -You should come out of the sling 4-5 times a day for passive pendulum exercises: lean over and swing your arm in a circular pattern. You may also do active-assisted forward flexion exercises: use your opposite hand to lift your operative arm forward to 90 degrees. -Do not actively use the muscles in your operative shoulder to lift your arm out to the side of your body. -Do not forcefully flex your elbow (curl motion) or supinate your forearm (rotating palm up) against resistance. Do not lift any objects with your operative arm. Pain Medicines -Your prescriptions for pain medications have already been sent to the pharmacy on file at [facility]. -You have been prescribed an anti-inflammatory (Motrin/ibuprofen) and a non- narcotic pain medicine (Tylenol/acetaminophen). These are your primary pain medications. Take them each every 6 hours as instructed. It is recommended that you stagger these medicines every 3 hours (i.e. take ibuprofen at 8:00 am, then acetaminophen at 11:00 am, then ibuprofen at 2:00 pm, etc) -DO NOT take any additional anti-inflammatories (Advil, Aleve/naproxen, Mobic/meloxicam, Celebrex) or any additional Tylenol/acetaminophen products with these prescribed medications. -You have also been prescribed an additional narcotic pain medication (oxycodone/tramadol). Take this medicine ONLY for breakthrough pain not controlled by the ibuprofen and acetaminophen. -Do not drive or operate heavy machinery while taking the narcotic medication. -Common side effects of narcotic pain medicines include itching, nausea, constipation, and feeling "loopy". However, if you develop a rash or hives, stop taking the medicine and call the clinic. If you develop swelling in your throat or difficulty breathing, go to the Emergency Room or call 911 IMMEDIATELY. -You may take over the counter stool softeners if needed for constipation. Regional Nerve Blocks -If you were given a regional nerve block for your surgery, take a dose of pain medicine SOON the block begins wears off (when you FIRST start feeling sensation return). Do not wait; the block will wear off fairly abruptly and cause a significant increase in your pain level. -Nerve blocks usually wear off after about 12 hours, but they can last as long as 72 hours. Ice Cooling Sleeve -You may use an ice pack or cooling sleeve to reduce pain and inflammation. You should use it 20-30 minutes at a time for the first 1-[address] a towel between the sleeve and your skin to prevent frostbite. -About 2 weeks after your surgery, you should start using heat to loosen up your shoulder prior to doing your stretching exercises, then use the cooling sleeve after your exercises are complete to reduce swelling and pain. Pending Studies at Discharge: No Stand-Alone Forms: My [facility], Smoking Cessation Medications and DC Order Prescriptions: New acetaminophen [Tylenol Extra Strength] 500 mg Tablet 1,000 mg PO Q8 Qty: 0 RF: 0 ibuprofen 600 mg Tablet 600 mg PO Q6H Qty: 0 RF: 0 Continued atorvastatin [Lipitor] 40 mg Tablet 40 mg PO QPM RF: 0 amiodarone [Pacerone] 200 mg Tablet 200 mg PO QAM RF: 0 donepezil [Aricept] 10 mg Tablet 10 mg PO DAILY RF: 0 cyanocobalamin (vitamin B-12) [Vitamin B-12] 1,000 mcg Tablet 1,000 mcg PO DAILY RF: 0 aspirin 81 mg Tablet,Delayed Release (Dr/Ec) 81 mg PO DAILY RF: 0 lisinopril [Zestril] 10 mg Tablet 10 mg PO QAM RF: 0 metoprolol succinate [Toprol XL] 25 mg Tablet Extended Release 24 Hr 25 mg PO QAM RF: 0 multivitamin Capsule 1 cap PO DAILY RF: 0 dicyclomine 10 mg Capsule 10 mg PO QID PRN (Reason: STOMACH IRRITATION) RF: 0 Trulicity 1.5 mg/0.5 mL Pen Injector 1.5 mg SUBCUT WK RF: 0 Discharge Orders: Discharge Order (Routine); Ordered 07/26/21 Ordered By: Lucio Brand Admission Data Admit Date/Time: 07/25/21 12:49 Attending Provider: Luis Daniel Porter Admit Provider: Luis Daniel Porter Primary Care Provider: Lisbet Lee Other Providers: Jeanne Watson ; Justino Najera ; Mandy Urbina ; Nancy Sharma ; Bharti Anderson ; Keely Anthony ; Rayo Sow ; Darrel Connor ; Anthony Hudson ; Rebecca Canada ; Santos Biswas ; Virginie Negron ; Colleen Rivers ; Parth Matias ; Maida Sequeira ; Radha Mera ; Rayray Gould ; Brandee Davis I. ; Flako Seth ; Peng Marcelo ; Bhavya Crockett ; Barron Baptiste ; Niles Max ; Nabil Sexton
[2021-07-26] MEDS: DOCUSATE SODIUM 100 MG CAP PO SCH (08:31)
[2021-07-26] MEDS: INSULIN ASPART PER UNIT SC SCH (08:57)
[2021-07-26] MEDS ORDERED: MULTIVITAMIN TAB PO SCH (09:00)
[2021-07-26] MEDS ORDERED: CYANOCOBALAMIN (B-12) 500 MCG TABLET PO SCH (09:00)
[2021-07-26] MEDS ORDERED: DONEPEZIL HCL 10 MG TAB PO SCH (09:00)
[2021-07-26] MEDS ORDERED: METOPROLOL SUCC 25MG EXT REL TAB PO SCH (09:00)
[2021-07-26] MEDS ORDERED: NON-FORMULARY MEDICATION (Multivitamin Capsule) PO SCH (09:00)
[2021-07-26] MEDS ORDERED: AMIODARONE 200 MG TAB PO SCH (09:00)
[2021-07-26] MEDS ORDERED: lisinopril 10 MG TAB PO SCH (09:00)
[2021-07-26] MEDS ORDERED: ASPIRIN 81 MG ECTAB PO SCH (09:00)
--- NOTE | 2021-07-26 10:57 | Hospitalist Progress Note ---
Date of Service July 26, 2021 Assessment & Plan (1) Rotator cuff tear: Plan: Right shoulder partial thickness Rotator cuff tear, Subacromial impingement, Superior labral tear S/P Right shoulder arthroscopy with double-row rotator cuff repair, arthroscopic subacromial decompression, debridement POD #1 Postoperative acute blood loss anemia Activity, wound care, DVT prophylaxis as per primary team. Incentive spirometry Bowel regimen to prevent constipation Patient sensitive to narcotics, minimize use as able Reorient frequently to minimize delirium Monitor CBC, no indication for transfusion currently PT/OT Advised to follow-up with PCP in 1 week upon discharge DM II HbA1C 5.9 Hold Trulicity Insulin sliding scale while hospitalized Monitor BGs Atrial fibrillation Continue amiodarone, metoprolol Currently not on anticoagulation Continue aspirin Follows with [facility] cardiology Hypertension BP stable Continue current medications B12 deficiency Continue Supplements Dyslipidemia On Lipitor CKD stage III Monitor renal function Avoid nephrotoxic agents as able Mild cognitive impairment On Aricept Code Status Full Code Disposition As per Primary Team Admission and Anticipated Discharge Date Admission Date: July 25, 2021 Subjective Patient is seen and examined at bedside Right shoulder pain at surgical site is controlled Denies any chest pain, shortness of breath, dizziness, nausea, abdominal pain Family at bedside Plan to be discharged home today Review of Systems Review of Systems: All systems reviewed & are unremarkable except as noted in Subjective Physical Exam Physical Exam: Physical Exam: Vitals signs as noted above General Appearance:Thin, no apparent distress Head: normocephalic, Atraumatic Eyes: normal inspection, EOMI Neck: supple, Trachea midline Respiratory/Chest: Normal breath sounds, CTA, No accessory muscle use Cardiovascular: S1, S2, No murmur Abdomen/GI:Soft, Non tender, Bowel sounds present Extremities/Musculoskeletal:normal inspection, no edema, R shoulder in Sling Neurologic/Psych:AAOX3, grossly no focal neurological deficits Skin: normal color, warm Results & Data Results & Data ([facility]) Vital Signs (Past 12 Hours) Vital Signs Temp Pulse Resp BP Pulse Ox 07/26/21 10:43 36.5 C 62 16 141/63 H 96 07/26/21 08:27 62 141/63 H 96 07/26/21 06:20 36.5 C 60 16 124/63 94 07/26/21 01:32 36.3 C L 62 16 152/67 H 94 Laboratory Results Short CBC 07/26/21 Range/Units 05:20 WBC 6.95 (4.8-10.8) K/uL Hgb 11.6 L (12.0-16.0) g/dL Hct 34.1 L (37-47) % Plt Count 215 (130-400) K/uL BMP 07/26/21 05:20 Sodium 136 Potassium 4.0 Chloride 106 Carbon Dioxide 23 BUN 15 Creatinine 1.09 Glucose 104 H Calcium 8.3 L
== END 2021-07-26 11:20 | disposition home or self-care (01) | DRG 501 ==
LOC: ASU 07:09 → 3E 12:49